=== PATIENT | female | born 1955 | race Caucasian/White ===

== ENCOUNTER 2016-12-13 06:22 | Day surgery (SDC) | payer OTHER ==
[~2016-12-13] VITALS: Ht 165.1 cm; Wt 68.0 kg
[~2016-12-13 06:22] MED LIST: ASPIRIN325 MG PO; ASPIRIN81 MG PO; ATORVASTATIN CA40 MG PO; BENADRYL 50MG C50 MG OR; BENADRYL 50MG C50 MG PO; CRESTOR20 MG OR; CRESTOR20 MG PO; FAMCICLOVIR PO; FOSAMAX70 MG OR; JANUMET1 TA1 PO; LEVEMIR FL100 UNIT/M SC; LEVOTHYROXIN50 MCG PO; LEVOTHYROXIN88 MC1 PO; MEDDOSEPAK PO; METFORMIN500 M1 OR; METFORMIN500 MG PO; NEXIUM40 M1 OR; NUCYNTA75 MG PO; PERCOCET 5/325M1 TAB OR; PRILOSEC20 MG/CAP PO; ZPAK PO
[2016-12-13 09:17] VITALS: BP 100/60
== END 2016-12-13 09:55 | disposition home or self-care (01) | DRG 392 ==
LOC: ENDO 06:22 → ORM 08:30 → ENDO 09:45
PROVIDERS: ATTEND Surgery
PROC: 0DJ08ZZ Inspection of Upper Intestinal Tract, Via Natural or Artificial Opening Endoscopic (ICD-10-PCS; principal; 2016-12-13)
PROC: 0DJD8ZZ Inspection of Lower Intestinal Tract, Via Natural or Artificial Opening Endoscopic (ICD-10-PCS; 2016-12-13)
DX: K21.9 Gastro-esophageal reflux disease without esophagitis (principal); Q43.8 Other specified congenital malformations of intestine; Z12.11 Encounter for screening for malignant neoplasm of colon; K44.9 Diaphragmatic hernia without obstruction or gangrene; K57.30 Diverticulosis of large intestine without perforation or abscess without bleeding

== ENCOUNTER → 2018-02-02 | Outpatient (REF) | payer OTHER | END | disposition home or self-care (01) | DRG 639 | LOC: LAB 07:00 | PROVIDERS: ATTEND Internal Medicine | DX: E11.69 Type 2 diabetes mellitus with other specified complication (principal) ==

== ENCOUNTER 2022-03-20 08:59 | Day surgery (SDC) | payer MEDICARE ==
[~2022-03-20] VITALS: Ht 165.1 cm; Wt 58.5 kg
[~2022-03-20 08:59] MED LIST changes: +JARDIANCE25 MG PO; +LISINOPRIL5 MG PO; +TRESIBA FL200 UNIT/M IN
[2022-03-20 11:14] VITALS: BP 118/63
== END 2022-03-20 11:38 | disposition home or self-care (01) ==
LOC: ENDO 08:59 → ORM 10:30 → ENDO 11:38
PROVIDERS: ATTEND Internal Medicine Gastroenterology
PROC: 0DBE8ZX Excision of Large Intestine, Via Natural or Artificial Opening Endoscopic, Diagnostic (ICD-10-PCS; principal; 2022-03-20)
PROC: 0DB98ZX Excision of Duodenum, Via Natural or Artificial Opening Endoscopic, Diagnostic (ICD-10-PCS; 2022-03-20)
PROC: 0DB78ZX Excision of Stomach, Pylorus, Via Natural or Artificial Opening Endoscopic, Diagnostic (ICD-10-PCS; 2022-03-20)
DX: K57.31 Diverticulosis of large intestine without perforation or abscess with bleeding (principal); K64.8 Other hemorrhoids; K29.71 Gastritis, unspecified, with bleeding; I10 Essential (primary) hypertension; E11.9 Type 2 diabetes mellitus without complications; E78.5 Hyperlipidemia, unspecified; E03.9 Hypothyroidism, unspecified; Z79.84 Long term (current) use of oral hypoglycemic drugs